=== PATIENT | female | born 1945 | race Caucasian/White ===

== ENCOUNTER 2022-06-09 08:59 | Outpatient (CLI) | payer MEDICARE, MEDICAID ==
[~2022-06-09 08:59] MED LIST: ATOR20TA66 PO; B2/V1TAB PO; HYDR-3972 PO; METO-395 PO; MULT-933 PO
== END 2022-06-09 23:59 | disposition home or self-care (01) ==
LOC: RAD 08:59
PROVIDERS: ATTEND Family Medicine
DX: I71.43 Infrarenal abdominal aortic aneurysm, without rupture (principal); R31.0 Gross hematuria; I70.0 Atherosclerosis of aorta; N32.89 Other specified disorders of bladder
CPT/HCPCS: 74176